=== PATIENT | male | born 1940 | race Caucasian/White ===

== ENCOUNTER 2018-10-31 19:27 | Emergency (ER) | payer MEDICARE, BC ==
[~2018-10-31] VITALS: Ht 172.7 cm; Wt 88.0 kg
[~2018-10-31 19:27] MED LIST: ASPI-903 PO; CARV6.2579 PO; SIMV20TA PO; SOLI5TAB2 PO; TERA5CAP3 PO
[2018-10-31 19:33] VITALS: Ht 172.7 cm; Wt 88.0 kg
--- NOTE | 2018-10-31 19:51 | EN ---
Date/Time of Note Date/Time of Note DATE: 10/31/18 TIME: 19:50 ER Progress Note MSE performed in ED 3. Patient presents with cough and shortness of breath 3 weeks and weakness despite antibiotics. Referred to ED 2 or 1 for further eval. ANNETTE SIFUENTES MD Oct 31, 2018 19:51
[2018-10-31] MEDS ORDERED: ALBUTEROL 0.083% (NEB) 2.5 MG/3 ML AMP HHN STA (21:46)
[2018-10-31] MEDS ORDERED: IPRATROPIUM (NEB) 0.5 MG/2.5 ML AMP INH ONE (22:00)
[2018-10-31] MEDS ORDERED: PRED20TA PO (23:43)
[2018-10-31] MEDS ORDERED: ALBU18HF INHALATION (23:43)
[2018-10-31] MEDS ORDERED: LEVO500T10 PO (23:43)
--- NOTE | 2018-10-31 23:47 | ERD ---
ER Documentation Chief Complaint Chief Complaint Cough congestion x 3 weeks HPI This is a 78-year-old male with cough and congestion for the past 3 weeks. Cough is mildly productive. Patient was diagnosed with bronchitis and started on a Z-Asher. Patient states that his symptoms have not resolved. Cough continues to be productive. No fevers or chills. No nausea no vomiting. No chest pain. No other current complaints. Denies shortness of breath. Denies lower extremity swelling. Denies any back pain. ROS All systems reviewed and are negative except as per history of present illness. Medications Home Meds Active Scripts Prednisone* (Prednisone*) 20 Mg Tab, 40 MG PO DAILY for 4 Days, TAB Prov:ABHIJIT CARR 10/31/18 Levofloxacin* (Levofloxacin*) 500 Mg Tablet, 500 MG PO DAILY, #7 TAB Prov:ABHIJIT CARR 10/31/18 Albuterol Sulfate* (Ventolin HFA*) 18 Gm Hfa.aer.ad, 2 PUFF INHALATION Q4H, #1 INHALER Prov:ABHIJIT CARR 10/31/18 Reported Medications Terazosin Hcl* (Terazosin Hcl*) 5 Mg Capsule, 5 MG PO HS, CAP 11/08/15 Aspirin* (Aspirin* Chew) 81 Mg Tab.chew, 81 MG PO DAILY, TAB.CHEW 11/08/15 Simvastatin* (Zocor*) 20 Mg Tablet, 20 MG PO QHS, #30 TAB 11/08/15 Solifenacin* (Vesicare*) 5 Mg Tablet, 5 MG PO DAILY, TAB 11/08/15 Carvedilol* (Carvedilol*) 6.25 Mg Tablet, 6.25 MG PO BID, #60 TAB 11/08/15 Allergies Allergies: Coded Allergies: Clopidogrel (Verified Allergy, Mild, RASHES, 11/06/08) PMhx/Soc History of Surgery: Yes (tripple bypass, appendectomy, right leg) Anesthesia Reaction: No Hx Neurological Disorder: No Hx Respiratory Disorders: No Hx Cardiac Disorders: Yes (HLD) Hx Psychiatric Problems: No Hx Miscellaneous Medical Probl: No Hx Alcohol Use: No Hx Substance Use: No Hx Tobacco Use: No Smoking Status: Never smoker Physical Exam Vitals Vital Signs Date Temp Pulse Resp B/P (MAP) Pulse Ox O2 O2 Flow FiO2 Time Delivery Rate 4/15/19 61 18 97 21 22:24 10/31/18 98.4 70 18 142/66 95 19:33 (91) Physical Exam Const: No acute distress Head: Atraumatic Eyes: Normal Conjunctiva ENT: Normal External Ears, Nose and Mouth. Neck: Full range of motion. No meningismus. Resp: Clear to auscultation bilaterally Cardio: Regular rate and rhythm, no murmurs Abd: Soft, non tender, non distended. Normal bowel sounds Skin: No petechiae or rashes Back: No midline or flank tenderness Ext: No cyanosis, or edema Neur: Awake and alert Psych: Normal Mood and Affect Result Diagram: 10/31/18221410/31/182214 Results 24 hrs Laboratory Tests Test 10/31/18 22:15 White Blood Count 7.9 10^3/ul Red Blood Count 4.40 10^6/ul Hemoglobin 13.2 g/dl Hematocrit 39.7 % Mean Corpuscular Volume 90.2 fl Mean Corpuscular Hemoglobin 30.0 pg Mean Corpuscular Hemoglobin Concent 33.2 g/dl Red Cell Distribution Width 13.4 % Platelet Count 206 10^3/UL Mean Platelet Volume 9.1 fl Immature Granulocytes % 0.800 % Neutrophils % 70.7 % Lymphocytes % 19.4 % Monocytes % 6.7 % Eosinophils % 2.0 % Basophils % 0.4 % Nucleated Red Blood Cells % 0.0 /100WBC Immature Granulocytes # 0.060 10^3/ul Neutrophils # 5.6 10^3/ul Lymphocytes # 1.5 10^3/ul Monocytes # 0.5 10^3/ul Eosinophils # 0.2 10^3/ul Basophils # 0.0 10^3/ul Nucleated Red Blood Cells # 0.0 10^3/ul Sodium Level 139 mmol/L Potassium Level 4.5 mmol/L Chloride Level 105 mmol/L Carbon Dioxide Level 28 mmol/L Anion Gap 6 Blood Urea Nitrogen 19 mg/dl Creatinine 1.08 mg/dl Est Glomerular Filtrat Rate mL/min mL/min Glucose Level 106 mg/dl POC Venous Lactate 0.9 mmol/L Calcium Level 9.4 mg/dl Total Bilirubin 0.3 mg/dl Direct Bilirubin 0.00 mg/dl Indirect Bilirubin 0.3 mg/dl Aspartate Amino Transf (AST/SGOT) 31 IU/L Alanine Aminotransferase (ALT/SGPT) 42 IU/L Alkaline Phosphatase 78 IU/L Troponin I < 0.012 ng/ml B-Type Natriuretic Peptide 275 PG/ML Total Protein 7.2 g/dl Albumin 3.8 g/dl Globulin 3.40 g/dl Albumin/Globulin Ratio 1.11 Current Medications Medications Dose Sig/Hoang Start Time Status Last (Trade) Ordered Route PRN Stop Time Admin Dose Reason Admin Albuterol 5 mg ONCE STAT 10/31/18 DC 10/31/18 (Proventil HHN 21:46 22:24 0.083% (Neb)) 10/31/18 21:48 Ipratropium 0.5 mg ONCE ONCE 10/31/18 DC 10/31/18 Rena Lara INH 22:00 22:24 (Atrovent 10/31/18 22:01 0.02% (Neb)) Procedures/MDM EKG: Rate/Rhythm: [Normal Sinus Rhythm] QRS, ST, T-waves: [No changes consistent w/ acute ischemia] Impression: [No evidence of ischemia or arrhythmia] Chest X-ray 1V Interpreted by me: Soft Tissue: No acute abnormalities Bones: No acute abnormalities Mediastinum/Cardiac Silhouette/Lungs: Increased peribronchial markings. Impression: Bronchitis Medical decision making: Patient's respiratory status has stabilized while in the department and is appropriate for outpatient work up. Exam and work up not consistent w/ impending respiratory failure or cardiovascular collapse. Departure Diagnosis: Primary Impression: Cough Condition: Stable Patient Instructions: Bronchitis With Wheezing (Adult) ABHIJIT CARR Oct 31, 2018 23:47
[2018-11-01 00:45] VITALS: BP 125/69; PULSE 59; RESP 20
== END 2018-11-01 00:48 | disposition home or self-care (01) ==
LOC: E/R 19:27
DX: R05 Cough (principal); R06.02 Shortness of breath; Z79.82 Long term (current) use of aspirin
CPT/HCPCS: 36415; 71045; 80053; 83605; 83880; 84484; 85025; 87400; 93005; 94664